=== PATIENT | female | born 1955 | race Two or more races ===

== ENCOUNTER 2024-08-15 15:21 | Outpatient (AMB) | payer MEDICARE, MEDICAID, SELFPAY ==
[2024-08-15 15:41] VITALS: BP 109/73; PULSE 64; RESP 18; TEMP 36.3; O2SAT 94; BMI 39.9
--- NOTE | 2024-08-15 15:41 | PD.ORTHCLVIS ---
Vital signs 08/15/24 15:41 Height 1.52 m Height Method Stated Weight 92.306 kg Weight Measurement Method Standing Scale BMI 39.9 BP 109/73 Blood Pressure Source Automatic Cuff Blood Pressure Location Right Upper Arm Position Sitting Respiration 18 Pulse 64 Pulse Source Monitor Temp 97.3 F Temp Source Temporal Artery Scan Pulse Oximetry (%) 94 L Oxygen Delivery Method Room Air Med/Allergies Allergies & Medications Allergies No Known Allergies Allergy (Verified 08/15/24 15:42) Medication Reconciliation atorvastatin 10 mg tablet 10 mg PO HS 06/06/24 [History Confirmed 08/15/24] hydrocodone 5 mg-acetaminophen 325 mg tablet 1 tab PO Q8H PRN Pain 06/06/24 [History Confirmed 08/15/24] levothyroxine 125 mcg capsule 125 mcg PO QDAY 06/06/24 [History Confirmed 08/15/24] lisinopril 5 mg tablet 5 mg PO QDAY 06/06/24 [History Confirmed 08/15/24] acetaminophen 500 mg tablet (Acetaminophen Extra Strength) 1,000 mg (2 x 500 mg) PO Q6H PRN pain #90 tabs 07/03/24 [Rx Confirmed 08/15/24] doxycycline hyclate 100 mg tablet 100 mg PO BID #14 tabs 07/03/24 [Rx Confirmed 08/15/24] gabapentin 300 mg capsule 300 mg PO .qhs #30 caps 07/03/24 [Rx Confirmed 08/15/24] liraglutide 0.6 mg/0.1 mL (18 mg/3 mL) subcutaneous pen injector (Victoza 2-Pillo) 18 mg subcut QDAY 07/03/24 [History Confirmed 08/15/24] oxycodone 5 mg tablet 5 mg PO Q6H PRN pain #28 tabs 07/03/24 [Rx Confirmed 08/15/24] sennosides 8.6 mg-docusate sodium 50 mg tablet (Senna-S) 1 tab-cap PO QDAY #30 tabs 07/03/24 [Rx Confirmed 08/15/24] cyclobenzaprine 5 mg tablet 5 mg PO QHS PRN muscle spasm #30 tabs 08/15/24 [Rx] Subjective Visit Visit for: follow up visit Immunization / Flu Flu Vaccine in the Last 12 Months: No Flu Vaccine Exclusion Criteria: No Exclusion Criteria History of Present Illness Chief complaint: FOLLOW UP/ PT FELL AND HURT HER KNEE, BACK AND HEAD Date of 1st surgery (if applicable): 07/03/2024 Patient is a 69-year-old female with right knee pain and significant right knee arthritis. She also has left knee pain. She is doing well status post right total knee replacement. She is happy Personal History Occupation: RETIRED Hobbies: GARDENING Red flag PMH: none Pain Pain level (0-10): 3 Pain duration: COMES AND GOES Pain location: anterior Pain quality: dull and aching Pain timing: increases with activity Associated signs & symptoms: none Ambulatory data Ambulatory device: walker Treatments Improvement with previous injections: No Improvement with PT: No Improvement with NSAIDS: n/a Review of Systems Review of Systems: All systems negative unless otherwise noted in HPI. Exam Exam Patient is in no acute distress and is cooperative with the examination today. Breathing is nonlabored. In no respiratory distress. Bilateral extremities were evaluated and demonstrates sensation intact to light touch. Palpable pedal pulses are present. No significant edema is present. Bilateral hips were examined. The patient has no pain with log roll of the hips. Internal rotation to 30 degrees and external rotation to 30 degrees is painless. Negative FADIR. The left knee was examined. The left knee is in [varus] alignment. Range of motion from [0-115] degrees. Knee is stable to varus and valgus as well as AP translation with <5mm. Patient has a [negative] [place]. There is [no] pain with patellofemoral compression and [no] crepitus noted. The knee is [tender] to palpation [medially]. Right knee incision is clean dry intact. Range of motion 0 to 100 degrees Assessment and Plan Problem List (1) Degenerative arthritis of knee, bilateral: Status: Acute (2) History of total right knee replacement: Status: Acute Plan: Patient is doing well status post right total knee replacement. We recommend continued PT. The right knee is bothering her and she is going to [place]. She would like a right knee cortisone injection today Advanced Care Planning Discussion Advance care planning discussed with:: patient Office Procedures GNS Level of Care Nursing/Assessment Patient Status: Established Patient Nursing Assessment/Reassesment: Medication Reconciliation, Update PMH in EMR and Vital Signs Coordination of Care: Complex Care and Chronic Disease 1-5, Education Complex Pt/Fam, Consent,records obtained, informed consent, Results/Orders obtained and Staff clarify orders Special Needs: Language special needs Established Patient Charge Established Patient Point Assignment: 95 Established Patient Point Charge: Level 3 (80-115) Surgical Proc/IM SQ injection Major Surgical Procedure: Yes (knee injection ) Medication Given Medication Given Medication Given: Yes Documented Dose Given: 4 Route: Infiitration Medication Given Medication Given Medication Given: Yes Documented Dose Given: 1 Office Meds Xylocaine 10 mg/mL (1 %) injection solution Performing Provider: Anil Ballard MD Performing Location: [facility] Administered by: Anil Ballard MD on 08/15/24 16:26 Dose Route Admin Location Dispensed Lot Number Expiration Date [facility] Director Of Professional Services 20 mL Infiltration 20 mL [id number] [facility] triamcinolone acetonide 40 mg/mL suspension for injection Performing Provider: Anil Ballard MD Performing Location: [facility] Administered by: Anil Ballard MD on 08/15/24 16:26 Dose Route Admin Location Dispensed Lot Number Expiration Date [facility] Director Of Professional Services 40 mg intra-articular 1 mL [id number] [employer] Past Medical History Past Medical History Have you ever been diagnosed with any of the following: Neurological Problems Seizures: No Cardiology Problems Hypercholesterolemia: Yes Congestive Heart Failure: No Hypertension: Yes Respiratory Problems Chronic Obstructive Pulmonary Disease (COPD): No Smoking: No Smoking Exposure: No Stomache/Intestinal Problems Hepatitis: No Obesity: Yes Genital/Urinary Problems Renal Disease: No Reproductive Problems Previous Pregnancies: No Musculoskeletal Problems Arthritis: Yes Degenerative Disk Disease: Yes Endocrine Problems Diabetes Mellitus Type 1: No Diabetes Mellitus Type 2: Yes Other Problems Hospitalization: Yes (surgery) Shingles: No Falls: No Blood Transfusions: No Blood Transfusion Reaction: No Anesthesia Reactions: Yes (nausea/vomiting) Cancer: No Surgical History Total Knee Replacement: Yes
== END 2024-08-15 16:34 | disposition home or self-care (01) ==
LOC: HODSRG 15:21
PROVIDERS: Supervising Provider Orthopaedic Surgery Adult Reconstructive Orthopaedic Surgery; Visit Provider Orthopaedic Surgery Adult Reconstructive Orthopaedic Surgery
DX: M17.0 Bilateral primary osteoarthritis of knee (principal); Z96.651 Presence of right artificial knee joint; I10 Essential (primary) hypertension; E78.00 Pure hypercholesterolemia, unspecified
CPT/HCPCS: 20610; 99213; J3301; J3490; G0463